=== PATIENT | female | born 1965 | race Caucasian/White ===

== ENCOUNTER → 2016-06-10 | Outpatient (CLI) | payer MEDICARE ==
[2016-06-10 09:32] LABS: BASOPHIL % 0.6 %; EOSINOPHIL # 0.1 K/uL (0.0-0.5); EOSINOPHIL % 2.5 %; HEMATOCRIT 35.4 % (33.0-46.0); HEMOGLOBIN 11.4 g/dL (10.0-15.0); IMMATURE GRANULOCYTE % 0.3 %; LYMPHOCYTE # 0.9 K/uL (0.8-4.0); LYMPHOCYTE % 28.3 %; MCH 27.5 pg (27.0-34.0); MCHC 32.2 gm/dL (32.0-36.5); MCV 85.5 fl (83.0-98.0); MONOCYTE # 0.5 K/uL (0.0-1.0); MONOCYTE % 14.2 %; MPV 9.3 fl (9.4-12.4); NEUTROPHIL # (ANC) 1.7 K/uL (1.8-7.8); NEUTROPHIL % 54.1 %; NRBC % 0 /100WBC (0-0.00); RBC 4.14 M/uL (3.50-5.50); RDW-CV 13.1 % (11.9-14.6); WBC 3.2 K/uL (4.0-11.0)
[2016-06-10 09:34] LABS: PLATELET COUNT 172 K/uL (150-450)
[2016-06-10 09:49] LABS: ANION GAP 14.3 (10.0-19.0); CALCIUM 9.2 mg/dL (8.5-10.5); CREATININE 1.8 mg/dL (0.5-1.1); PHOSPHORUS 3.3 mg/dL (2.5-4.9); POTASSIUM 4.3 mMol/L (3.7-5.1)
== END | disposition disaster alternative care site (69) ==
LOC: GLAB 09:09
PROVIDERS: Student in an Organized Health Care Education/Training Program
DX: Z48.22 Encounter for aftercare following kidney transplant (principal); Z48.298 Encounter for aftercare following other organ transplant; Z94.0 Kidney transplant status; Z94.83 Pancreas transplant status; Z79.899 Other long term (current) drug therapy

== ENCOUNTER → 2016-08-10 | Outpatient (CLI) | payer MEDICARE ==
[2016-08-10 09:29] LABS: BASOPHIL % 0.4 %; EOSINOPHIL # 0.1 K/uL (0.0-0.5); EOSINOPHIL % 3.2 %; HEMATOCRIT 30.7 % (33.0-46.0); HEMOGLOBIN 9.9 g/dL (10.0-15.0); IMMATURE GRANULOCYTE % 0.4 %; LYMPHOCYTE # 0.6 K/uL (0.8-4.0); LYMPHOCYTE % 21.4 %; MCH 27.3 pg (27.0-34.0); MCHC 32.2 gm/dL (32.0-36.5); MCV 84.6 fl (83.0-98.0); MONOCYTE # 0.4 K/uL (0.0-1.0); MONOCYTE % 13.9 %; MPV 9.4 fl (9.4-12.4); NEUTROPHIL # (ANC) 1.7 K/uL (1.8-7.8); NEUTROPHIL % 60.7 %; NRBC % 0 /100WBC (0-0.00); PLATELET COUNT 145 K/uL (150-450); RBC 3.63 M/uL (3.50-5.50); RDW-CV 13.1 % (11.9-14.6); WBC 2.8 K/uL (4.0-11.0)
[2016-08-10 09:46] LABS: ANION GAP 11.2 (10.0-19.0); CALCIUM 8.5 mg/dL (8.5-10.5); CREATININE 1.8 mg/dL (0.5-1.1); MAGNESIUM 1.9 mg/dL (1.8-2.6); PHOSPHORUS 2.7 mg/dL (2.5-4.9); POTASSIUM 4.2 mMol/L (3.7-5.1)
== END | disposition disaster alternative care site (69) ==
LOC: GLAB 07-15 15:06
PROVIDERS: Internal Medicine Nephrology
DX: Z48.22 Encounter for aftercare following kidney transplant (principal); Z84.0 Family history of diseases of the skin and subcutaneous tissue; Z94.83 Pancreas transplant status; Z79.899 Other long term (current) drug therapy; Z48.298 Encounter for aftercare following other organ transplant